=== PATIENT | female | born 1980 | race Hispanic/Latino ===

== ENCOUNTER 2019-07-18 07:19 | Day surgery (SDC) | payer SELFPAY ==
[2019-07-18] MEDS ORDERED: Ondansetron PF 4 MG/2 ML Vial ONE ×4 (07:42→15:16)
[2019-07-18] MEDS ORDERED: Pantoprazole 40 MG VIAL ONE (07:42)
[2019-07-18] MEDS ORDERED: Morphine 4 MG/ML VIAL ONE ×2 (07:42→07:55)
[2019-07-18 07:49] LABS: #Basophils 0.1 thou/uL (0.0-0.2); #Lymphocytes 1.8 thou/uL (1.20-3.40); #Monocytes 0.2 thou/uL (0.11-0.59); #Neutrophils 11.4 thou/uL (1.40-6.50); %Basophils 0.7 % (0.0-1.0); %Eosinophils 0.2 % (0.0-10.0); %Lymphocytes 12.9 % (21.0-51.0); %Monocytes 1.5 % (0.0-10.0); %Neutrophils 84.7 % (42.0-75.0); Hemoglobin 13.7 g/dL (12.0-16.0); Mean Corpuscular HGB CONC 33.8 g/dL (32.0-36.0); Mean Corpuscular Hemoglobin 28.5 pg (27.0-31.0); Mean Corpuscular Volume 84.3 fL (78.0-98.0); Mean Platelet Volume 7.1 fL (7.4-10.4); Platelet Count 416 thou/uL (130-400); RBC Distribution Width 12.4 % (11.5-14.5); Red Blood Cell (RBC) Count 4.83 mill/uL (4.20-5.40); White Blood Cell (WBC) Count 13.5 thou/uL (4.8-10.8)
[2019-07-18 07:56] LABS: BHCG - Serum Negative (NEGATIVE); Pregs Control Background? CLEAR/WHITE (CLR/WHITE); Pregs Control Bar Appear? YES (CONTROL BAR)
[2019-07-18 08:02] LABS: ALT (SGPT) 19 U/L (8-55); AST (SGOT) 17 U/L (5-34); Albumin 4.3 g/dL (3.5-5.0); Alkaline Phosphatase 71 U/L (40-110); Anion Gap 16 mmol/L (10-20); BUN (Urea Nitrogen) 13 mg/dL (7.0-18.7); Bilirubin, Total 0.3 mg/dL (0.2-1.2); CK (CPK) 30 U/L (29-168); Calc. Creatinine Clearance 0 mL/min (70-130); Calcium 9.3 mg/dL (7.8-10.44); Carbon Dioxide 21 mmol/L (22-29); Chloride 102 mmol/L (98-107); Estimated GFR-MDRD Greater than 90; Globulin 3.3 g/dL (2.4-3.5); Glucose 142 mg/dL (70-105); Lipase 31 U/L (8-78); Potassium 3.8 mmol/L (3.5-5.1); Protein, Total 7.6 g/dL (6.0-8.3); Sodium 135 mmol/L (136-145)
--- NOTE | 2019-07-18 08:46 | RAD ---
Exam: Chest one view HISTORY:Nausea. Vomiting. Comparison: None FINDINGS: Cardiac silhouette: Normal Aorta: Unremarkable Pulmonary vessels: Normal Costophrenic angles: Clear LUNGS: No masses or consolidation. Pneumothorax: None Osseous abnormalities: None IMPRESSION: No acute cardiopulmonary process.
[2019-07-18 09:52] LABS: Bilirubin Negative (Negative); Blood, Urine 1+ (Negative); Clarity Clear (Clear); Glucose, Urine (Dipstick) 200 mg/dL (Negative); Leukocyte 25 Leu/uL (Negative); Nitrite Negative (Negative); Protein, Urine (Dipstick) 10 mg/dL (Neg-Trace); Urobilinogen Normal mg/dL (Less than 2)
[2019-07-18 09:53] LABS: Bacteria/HPF 1+ HPF (None Seen)
[2019-07-18] MEDS ORDERED: Piperacillin/Tazobactam 4.5 GM VIAL ONE (09:54)
[2019-07-18] MEDS ORDERED: Morphine 2 MG/ML SYRINGE ONE (09:54)
--- NOTE | 2019-07-18 10:10 | ULT ---
GALLBLADDER ULTRASOUND: Date: 07/18/19 INDICATION: Abdominal pain. FINDINGS: Images of the liver show increased echogenicity consistent with fatty infiltration. Liver is mildly e nlarged measuring up to 19 cm. Images of the gallbladder show numerous echogenic gallstones. Common duct is dilated, measured at 7-8 mm. Pancreas is obscured. The right kidney is unremarkable as imaged. IMPRESSION: 1. Hepatomegaly with increased hepatic echogenicity suggesting chronic hepatic disease or fatty infi ltration. 2. Cholelithiasis. 3. Mildly dilated common bile duct. POS: [facility]
[2019-07-18] MEDS ORDERED: Bupivacaine 0.25% HCL 30 ML VIAL ONE (10:38)
[2019-07-18] MEDS ORDERED: Lidocaine 1% w/Epinephrine 1:100K 20 ML VIAL ONE (10:39)
--- NOTE | 2019-07-18 11:07 | HP ---
CHIEF COMPLAINT: Right upper quadrant abdominal pain. HISTORY: A 39-year-old female with a 10-hour history of right upper quadrant pain radiating to back, associated with nausea and vomiting. No fever. PAST MEDICAL HISTORY: Obesity. PAST SURGICAL HISTORY: None. MEDICATIONS: No medications. ALLERGIES: NO KNOWN DRUG ALLERGIES. SOCIAL HISTORY: She is [place]-speaking. She is single. She cleans houses. No tobacco. Social alcohol. FAMILY HISTORY: Diabetes in her mother. PHYSICAL EXAMINATION: VITAL SIGNS: Afebrile, pulse 90, and blood pressure 129/64. GENERAL: She is awake, alert, in pain. HEENT: No jaundice. LUNGS: Clear. HEART: Regular rate and rhythm. ABDOMEN: Obese, soft, tender in the right upper quadrant with a positive Wilkins's sign. EXTREMITIES: Unremarkable. LABORATORY DATA: White count 13.5, H and H are 13 and 40, and platelet count 416. Electrolytes are fine, elevated glucose of 142, creatinine 0.6. LFTs normal. HCG negative. Ultrasound shows cholelithiasis with thickened gallbladder wall. ASSESSMENT: Acute cholecystitis. PLAN: Laparoscopic cholecystectomy. CONSENT: I have discussed planned procedure as well as risk of bleeding, infection, injury to bile duct, injury to bowel, need to open, she understands and gives informed consent. Job ID: [id number]
[2019-07-18] MEDS ORDERED: Midazolam HCl 2 mg/2 ml Vial ONE (11:11)
[2019-07-18] MEDS ORDERED: Fentanyl 250 MCG/5 ML VIAL ONE (11:11)
[2019-07-18] MEDS ORDERED: HYDROcodone/Acetaminophen 5/325 mg Tablet ONE (13:23)
[2019-07-18] MEDS ORDERED: Dexamethasone 20 MG/5 ML VIAL ONE (15:16)
[2019-07-18] MEDS ORDERED: PROPOFOL 200 MG/20 ML VIAL ONE (15:16)
[2019-07-18] MEDS ORDERED: Rocuronium Bromide 10 MG/ML (10ML VIAL) ONE (15:16)
[2019-07-18] MEDS ORDERED: Lidocaine 1% PF 5 ML VIAL ONE (15:16)
[2019-07-18] MEDS ORDERED: Glycopyrrolate 0.2 MG/ML 5 ML SYRINGE ONE (15:16)
--- NOTE | 2019-07-20 08:21 | OP ---
DATE OF PROCEDURE: 07/18/2019 PREOPERATIVE DIAGNOSIS: Acute cholecystitis. PROCEDURE PERFORMED: Laparoscopic cholecystectomy. INDICATIONS: A 39-year-old female with a 10-hour history of severe right upper quadrant pain to the back with nausea and vomiting. Ultrasound showed cholelithiasis and thickened gallbladder wall. FINDINGS: She had hydrops of the gallbladder with clear fluid within the gallbladder, multiple large stones. DESCRIPTION OF PROCEDURE: After informed consent was obtained, the patient was taken to the operating room, given general endotracheal anesthesia and placed in the supine position. Abdomen was prepped and draped in usual fashion. Local anesthesia was infiltrated subcutaneously and deep. A subumbilical incision was performed. Subcu was divided sharply. The fascia was grasped, and 2 stay sutures were placed in either side of midline. Midline was incised. Digital palpation revealed no local adhesions. A blunt 12 mm trocar was inserted. Pneumoperitoneum was created to a pressure of 15 mmHg. A 0-degree laparoscope was inserted under direct vision. Three 5 mm ports were placed subcostally. The gallbladder was very distended. An aspirating needle was inserted, and 80 mL of mucus fluid was removed from the gallbladder. The gallbladder was grasped and advanced superiorly. The peritoneum lysed distally to expose the cystic duct artery in critical view. The cystic duct was actually very short, less than 1 cm. Three clips were placed on it. There were actually 2 cystic arteries that were ligated with hemoclips and divided. The gallbladder was removed from its fossa utilizing electrocautery, removed from the abdomen through the umbilical port. Hemostasis was assured with electrocautery and Pam powder. The abdomen was decompressed. Trocars and retractors were removed. The fascia was closed with interrupted 0 Vicryl suture. The skin was closed with interrupted 4-0 Rapide. Dermabond was applied. The patient tolerated the procedure well, transferred to Recovery in good condition. Sponge and needle count verified correct x2. Job ID: [id number]
== END 2019-07-18 13:45 | disposition home or self-care (01) ==
LOC: ERS 07:19
PROVIDERS: ATTEND Surgery
PROC: 0FT44ZZ Resection of Gallbladder, Percutaneous Endoscopic Approach (ICD-10-PCS; principal; 2019-07-18)
DX: K80.12 Calculus of gallbladder with acute and chronic cholecystitis without obstruction (principal); K82.1 Hydrops of gallbladder; F41.9 Anxiety disorder, unspecified; F32.9 Major depressive disorder, single episode, unspecified; E66.9 Obesity, unspecified
CPT/HCPCS: 71045; 76705; 80053; 81003; 81015; 82550; 83690; 84484; 84703; 85025; 88304; 93005; C9113; J1100; J2001; J2250; J2270; J2405; J2543; J2704; J3010; S0020